=== PATIENT | female | born 1960 | race Two or more races ===

== ENCOUNTER 2023-11-16 14:25 | Inpatient (IN) | payer MEDICARE, OTHER ==
[~2023-11-16] VITALS: Ht 152.4 cm; Wt 87.5 kg
[2023-11-16] MEDS ORDERED: BENZ2AMP3 IM (14:45)
[2023-11-16] MEDS ORDERED: GABA-532 PO (14:45)
[2023-11-16] MEDS ORDERED: TEMA15CA PO (14:45)
[2023-11-16] MEDS ORDERED: LORA0.5T48 PO (14:45)
[2023-11-16] MEDS ORDERED: OLAN10TA3 PO (14:45)
[2023-11-16] MEDS ORDERED: LEVO50TA8 PO (14:45)
[2023-11-16] MEDS ORDERED: IPRA3AMP23 IH (14:45)
[2023-11-16 15:48] LABS: ACETAMINOPHEN < 2.0 ug/mL (10-30)
[2023-11-16 15:59] LABS: ETHANOL < 3 MG/DL (0-10)
[2023-11-16 16:19] LABS: *BILIRUBIN,URIN NEGATIVE (NEGATIVE); *BLOOD, URINE NEGATIVE (NEGATIVE); *CLARITY,URINE CLEAR (CLEAR); *COLOR,URINE YELLOW (YELLOW); *KETONES,URINE NEGATIVE (NEGATIVE); *PROTEIN,URINE NEGATIVE (NEGATIVE); *UROBILINOGEN,URINE 0.2 E.U./dl (NORMAL); LEUKOCYTE ESTERASE ,URINE NEGATIVE (NEGATIVE); NITRITE, URINE NEGATIVE (NEGATIVE); PH,URINE 7.5 (5.0-8.0); UGLUCOSE NEGATIVE (NEGATIVE)
[2023-11-16 17:58] VITALS: BP 118/68; TEMP 97.8; O2SAT 95
[2023-11-16] MEDS ORDERED: MAG HYDROX/AL HYDROX/SIMETH 30 ML LIQUID UDC PO PRN (18:15)
[2023-11-16] MEDS ORDERED: MAGNESIUM HYDROXIDE 30 ML LIQUID UDC PO PRN (18:15)
[2023-11-16] MEDS: BLOOD SUGAR DIAGNOSTIC 1 EACH STRIP VI ONE (18:36)
[2023-11-16 20:18] VITALS: BP 118/68; TEMP 97.8; O2SAT 98
[2023-11-16] MEDS: ACETAMINOPHEN 325 MG TABLET PO PRN (21:32)
[2023-11-17] MEDS: LEVOTHYROXINE SODIUM 50 MCG TABLET PO SCH (06:37)
[2023-11-17 07:53] VITALS: BP 100/52; TEMP 98.2; O2SAT 96
[2023-11-17 08:26] LABS: BASOPHILS % (AUTO) 0.6 % (0.0-2.0); EOSINOPHILS # (AUTO) 0.2 K/uL (0.0-0.7); EOSINOPHILS % (AUTO) 4.9 % (0.0-7.0); HEMATOCRIT 39.2 % (31.2-41.9); HEMOGLOBIN 12.6 g/dL (10.9-14.3); LYMPHOCYTES # (AUTO) 1.4 K/uL (0.8-4.8); LYMPHOCYTES % (AUTO) 33.4 % (20.5-51.5); MEAN CORPUSCULAR HGB CONC 32 g/dL (32.3-35.6); MONOCYTES # (AUTO) 0.4 K/uL (0.1-1.30); MONOCYTES % (AUTO) 8.2 % (0.0-11.0); NEUTROPHILS # (AUTO) 2.3 K/uL (1.8-8.9); NEUTROPHILS % (AUTO) 52.9 % (38.5-71.5); PLATELET COUNT (AUTO) 203 K/uL (179-408); RED BLOOD CELL COUNT(AUTO) 4.35 MIL/uL (3.63-4.92); RED CELL DISTRIBUTION WIDTH 13.9 % (12.3-17.7); WHITE BLOOD COUNT (AUTO) 4.3 K/uL (3.8-11.8)
[2023-11-17 08:33] LABS: DIFFERENTIAL COMMENT 1
[2023-11-17 08:45] LABS: ALBUMIN 2.5 g/dL (3.4-5.0); BILIRUBIN,TOTAL 0.5 mg/dL (0.2-1.0); CALCIUM 8.7 mg/dL (8.5-10.1); CREATININE 0.8 mg/dL (0.6-1.3); TOTAL PROTEIN, SERUM 6.9 g/dL (6.4-8.2)
[2023-11-17] MEDS ORDERED: ZOLPIDEM 5 MG TABLET PO PRN (08:45)
[2023-11-17] MEDS ORDERED: GABAPENTIN 100 MG CAPSULE PO SCH (09:00)
[2023-11-17 09:10] LABS: THYROID STIMULATING HORMONE 0.959 mIU/mL (0.358-3.740)
[2023-11-17 09:15] LABS: MAGNESIUM 2.3 mg/dL (1.8-2.4); PHOSPHOROUS 2.8 mg/dL (2.5-4.9)
[2023-11-17] MEDS: OLANZAPINE 5 MG TABLET PO SCH (09:27)
[2023-11-17] MEDS: DIVALPROEX SPRINKLE 125 MG CAP.SPRINK PO SCH (09:27)
[2023-11-17] MEDS: GABAPENTIN 100 MG CAPSULE PO SCH (09:27)
[2023-11-17 15:19] VITALS: BP 115/70; TEMP 98; O2SAT 98
[2023-11-17] MEDS: CLOTRIMAZOLE 1% CREAM 30 GM TUBE TOP SCH (17:06)
[2023-11-17 20:15] VITALS: BP 112/66; TEMP 98.1; O2SAT 96
[2023-11-17 20:38] VITALS: O2SAT 95
[2023-11-17] MEDS: IPRATROPIUM BROMIDE 0.5 MG/2.5 ML NEBU NEB PRN (20:38)
[2023-11-17] MEDS: ALBUTEROL SULFATE 2.5 MG/ 0.5 ML NEBU NEB PRN (20:38)
[2023-11-17 20:48] VITALS: O2SAT 97
[2023-11-17] MEDS: REMEDY ESSENTIAL ZINC PASTE 113 GM TOP SCH (20:50)
[2023-11-18] VITALS (7 sets, daily range): BP systolic 111–132; BP diastolic 56–76; TEMP 97–97.6; O2SAT 96–100
[2023-11-18] MEDS ORDERED: ALBUTEROL SULFATE 1.25 MG/3 ML NEBU ONE (21:47)
[2023-11-18] MEDS ORDERED: IPRATROPIUM BROMIDE 0.5 MG/2.5 ML NEBU ONE (21:47)
[2023-11-19] VITALS (7 sets, daily range): BP systolic 104–130; BP diastolic 58–73; TEMP 98–98.2; O2SAT 95–100
[2023-11-19] MEDS: LORAZEPAM 1 MG TABLET PO PRN (20:49)
[2023-11-20 08:28] VITALS: BP 116/64; TEMP 97.8; O2SAT 97
[2023-11-20 09:50] VITALS: O2SAT 97
[2023-11-20 10:01] VITALS: O2SAT 98
[2023-11-20 17:06] VITALS: BP 113/69; TEMP 97.9; O2SAT 97
[2023-11-20 23:30] VITALS: BP 123/63; TEMP 98; O2SAT 95
[2023-11-21] VITALS (9 sets, daily range): BP systolic 96–102; BP diastolic 51–59; TEMP 98.1–98.3; O2SAT 96–99
[2023-11-22 07:50] VITALS: BP 122/70; TEMP 98.2; O2SAT 96
[2023-11-22] MEDS: DIVALPROEX SPRINKLE 125 MG CAP.SPRINK PO SCH (08:21)
[2023-11-22 16:00] VITALS: BP 102/73; TEMP 98; O2SAT 95
[2023-11-22 20:34] VITALS: BP 108/68; TEMP 98; O2SAT 96
[2023-11-23 08:40] VITALS: BP 114/61; TEMP 98; O2SAT 98
[2023-11-23 09:30] VITALS: O2SAT 99
[2023-11-23 09:40] VITALS: O2SAT 99
[2023-11-23 15:50] VITALS: BP 128/75; TEMP 98; O2SAT 96
[2023-11-23 19:56] VITALS: BP 126/64; TEMP 98.2; O2SAT 95
[2023-11-24 07:41] VITALS: BP 124/84; TEMP 98; O2SAT 98
[2023-11-24 15:43] VITALS: BP 96/63; TEMP 98; O2SAT 96
[2023-11-24 20:00] VITALS: BP 120/70; TEMP 97.5; O2SAT 95
[2023-11-24 20:50] VITALS: O2SAT 99
[2023-11-24 21:00] VITALS: O2SAT 99
[2023-11-25] VITALS (7 sets, daily range): BP systolic 114–128; BP diastolic 59–75; TEMP 97.3–98; O2SAT 94–99
[2023-11-26] VITALS (7 sets, daily range): BP systolic 91–130; BP diastolic 60–76; TEMP 97.8–98; O2SAT 93–100
[2023-11-26] MEDS: IBUPROFEN 400 MG TABLET PO PRN (01:42)
[2023-11-27 08:22] VITALS: BP 100/54; TEMP 97.9; O2SAT 98
== END 2023-11-27 15:45 | disposition still patient (30) | DRG 885 ==
LOC: ER 14:25 → GPS 17:07
PROVIDERS: ADMIT Psychiatry & Neurology Psychiatry; ATTEND Internal Medicine
DX: F31.5 Bipolar disorder, current episode depressed, severe, with psychotic features (principal); J44.89 Other specified chronic obstructive pulmonary disease; R45.851 Suicidal ideations; I69.351 Hemiplegia and hemiparesis following cerebral infarction affecting right dominant side; F03.94 Unspecified dementia, unspecified severity, with anxiety; D68.59 Other primary thrombophilia; E11.42 Type 2 diabetes mellitus with diabetic polyneuropathy; F60.9 Personality disorder, unspecified; E03.9 Hypothyroidism, unspecified; Z77.22 Contact with and (suspected) exposure to environmental tobacco smoke (acute) (chronic); E66.9 Obesity, unspecified; Z68.37 Body mass index [BMI] 37.0-37.9, adult; Z71.3 Dietary counseling and surveillance; Z79.890 Hormone replacement therapy; Z79.899 Other long term (current) drug therapy; G80.9 Cerebral palsy, unspecified; Z91.011 Allergy to milk products; Z88.0 Allergy status to penicillin; Z91.018 Allergy to other foods; F90.9 Attention-deficit hyperactivity disorder, unspecified type; F43.10 Post-traumatic stress disorder, unspecified; Z91.51 Personal history of suicidal behavior; Z91.81 History of falling; M15.9 Polyosteoarthritis, unspecified; Z74.09 Other reduced mobility; E78.5 Hyperlipidemia, unspecified; M25.562 Pain in left knee; M25.561 Pain in right knee
CPT/HCPCS: 36415; 73610; 80164; 83735; 84100; 84443; 85025; 94640; 94760; A4606; A4663; C1758; G0480; J3590